=== PATIENT | female | born 1945 | race Caucasian/White ===

== ENCOUNTER → 2016-10-08 | Outpatient (CLI) | payer MEDICARE, OTHER | LOC: US 13:24 | DX: M79.602 Pain in left arm (principal); M79.622 Pain in left upper arm; I82.712 Chronic embolism and thrombosis of superficial veins of left upper extremity | CPT/HCPCS: 73060; 93971 ==

== ENCOUNTER → 2016-12-28 | Outpatient (CLI) | payer MEDICARE, OTHER | LOC: CT 14:49 | DX: R10.11 Right upper quadrant pain (principal) | CPT/HCPCS: J7050; Q9962 ==

== ENCOUNTER → 2017-03-16 | Outpatient (CLI) | payer MEDICARE, OTHER | LOC: RAD 07:47 | DX: R13.14 Dysphagia, pharyngoesophageal phase (principal); K22.4 Dyskinesia of esophagus | CPT/HCPCS: 74220 ==

== ENCOUNTER → 2020-10-17 | Outpatient (CLI) | payer MEDICARE, OTHER ==
[~2020-10-17] MED LIST: ALDACTONE 25MG25 MG PO; ALPRAZOLAM1 MG PO; ASPIRIN81 MG PO; BLACK COHASH PO; COZAAR 50MG TAB50 MG PO; DILTIAZEM 24HR120 M1 PO; ELIQUIS 5 MG TAB5 MG PO; FLUOXETINE HCL40 MG PO; LEVOFLOXACIN500 MG PO; LOPRESSOR 50 MG50 MG PO; OMNICEF 300 MG300 MG PO; VITAMIN C D PO; Voltaren Gel 1 % TOP; ZINC PO
== END ==
LOC: MAMO 12:23
DX: Z12.31 Encounter for screening mammogram for malignant neoplasm of breast (principal)
CPT/HCPCS: 77063; 77067

== ENCOUNTER 2021-01-07 13:58 | Observation (INO) | payer MEDICARE, OTHER ==
[~2021-01-07] VITALS: Ht 167.6 cm; Wt 103.4 kg
[~2021-01-07 13:58] MED LIST changes: -ALDACTONE 25MG25 MG PO; -ALPRAZOLAM1 MG PO; -ASPIRIN81 MG PO; -BLACK COHASH PO; -COZAAR 50MG TAB50 MG PO; -DILTIAZEM 24HR120 M1 PO; -ELIQUIS 5 MG TAB5 MG PO; -FLUOXETINE HCL40 MG PO; -LEVOFLOXACIN500 MG PO; -LOPRESSOR 50 MG50 MG PO; -OMNICEF 300 MG300 MG PO; -VITAMIN C D PO; -ZINC PO
[2021-01-07 15:05] LABS: HEMOGLOBIN 14.5 gm/dl (12.3-15.3); RED BLOOD COUNT 4.53 M/UL (4.00-5.10); WHITE BLOOD COUNT 6.3 K/UL (4.5-11.0)
[2021-01-07 16:04] LABS: BUN/CREATININE RATIO 17 (0-10)
[2021-01-07] MEDS ORDERED: LOPRESSOR 50 MG50 MG PO (19:32)
[2021-01-07] MEDS ORDERED: ALDACTONE 25MG25 MG PO (19:32)
[2021-01-07] MEDS ORDERED: COZAAR 50MG TAB50 MG PO (19:33)
[2021-01-07] MEDS ORDERED: ALPRAZOLAM1 MG PO (19:33)
[2021-01-07] MEDS ORDERED: ASPIRIN81 MG PO (19:34)
[2021-01-07] MEDS ORDERED: FLUOXETINE HCL40 MG PO (19:34)
[2021-01-07] MEDS ORDERED: ZINC PO (19:35)
[2021-01-07] MEDS ORDERED: VITAMIN C D PO (19:35)
[2021-01-07] MEDS ORDERED: BLACK COHASH PO (19:35)
[2021-01-08 02:41] LABS: HEMOGLOBIN 13.7 gm/dl (12.3-15.3); RED BLOOD COUNT 4.31 M/UL (4.00-5.10); WHITE BLOOD COUNT 7.5 K/UL (4.5-11.0)
[2021-01-08 02:59] LABS: BUN/CREATININE RATIO 18 (0-10)
[2021-01-09] MEDS ORDERED: LEVOFLOXACIN500 MG PO (09:49)
[2021-01-09] MEDS ORDERED: DILTIAZEM 24HR120 M1 PO (09:49)
[2021-01-09] MEDS ORDERED: ELIQUIS 5 MG TAB5 MG PO (09:49)
[2021-01-09] MEDS ORDERED: COZAAR 50MG TAB50 MG PO (09:49)
[2021-01-09] MEDS ORDERED: OMNICEF 300 MG300 MG PO (16:09)
[2021-03-13] MEDS ORDERED: CRANBERRY 12,61 EACH PO (07:47)
[2021-03-13] MEDS ORDERED: GARLIC1000 MG PO (07:50)
[2021-03-13] MEDS ORDERED: GLUCOSAMINE S1000 M2 PO (07:52)
[2021-03-13] MEDS ORDERED: SOTALOL80 MG PO ×2 (09:50→10:26)
== END 2021-01-09 17:45 | disposition home or self-care (01) ==
LOC: ER1 13:58 → PROG CARE 16:40 → CDU 16:40 → PROG CARE 19:22
PROVIDERS: Physician Assistant Medical; Preventive Medicine Occupational Medicine; ADMIT Internal Medicine
DX: I48.91 Unspecified atrial fibrillation (principal); I10 Essential (primary) hypertension; Z20.822 Contact with and (suspected) exposure to COVID-19; Z86.16 Personal history of COVID-19; Z86.718 Personal history of other venous thrombosis and embolism; Z79.82 Long term (current) use of aspirin; Z79.899 Other long term (current) drug therapy
CPT/HCPCS: ECHO; 36415; 71045; 80048; 80053; 81001; 82550; 82553; 83690; 83735; 83874; 83880; 84439; 84443; 84484; 85025; 85027; 85652; 86140; 87077; 87086; 87186; 93005; 93270; 93306; 93971; 94760; 96372; 96374; 99285; G0378; J1650; J7030; U0002

== ENCOUNTER → 2021-03-13 | Outpatient (CLI) | payer MEDICARE, OTHER ==
[~2021-03-13] MED LIST changes: +ALDACTONE 25MG25 MG PO; +ALPRAZOLAM1 MG PO; +ASPIRIN81 MG PO; +BLACK COHASH PO; +COZAAR 50MG TAB50 MG PO; +CRANBERRY 12,61 EACH PO; +DILTIAZEM 24HR120 M1 PO; +ELIQUIS 5 MG TAB5 MG PO; +FLUOXETINE HCL40 MG PO; +GARLIC1000 MG PO; +GLUCOSAMINE S1000 M2 PO; +LEVOFLOXACIN500 MG PO; +LOPRESSOR 50 MG50 MG PO; +OMNICEF 300 MG300 MG PO; +SOTALOL80 MG PO; +VITAMIN C D PO; +ZINC PO
[2021-03-13 08:01] LABS: HEMOGLOBIN 14.6 gm/dl (12.3-15.3); RED BLOOD COUNT 4.74 M/UL (4.00-5.10); WHITE BLOOD COUNT 8.3 K/UL (4.5-11.0)
== END ==
LOC: CATH 06:56
PROVIDERS: Internal Medicine Cardiovascular Disease
DX: I48.19 Other persistent atrial fibrillation (principal); I10 Essential (primary) hypertension; F41.9 Anxiety disorder, unspecified; F32.9 Major depressive disorder, single episode, unspecified; M17.11 Unilateral primary osteoarthritis, right knee; E78.5 Hyperlipidemia, unspecified; Z87.891 Personal history of nicotine dependence; Z79.01 Long term (current) use of anticoagulants; Z79.82 Long term (current) use of aspirin; Z79.899 Other long term (current) drug therapy
CPT/HCPCS: 36415; 80048; 85027; 92960; 93005; J1200; J1742; J2250; J3010; J7040

== ENCOUNTER → 2021-05-14 | Outpatient (CLI) | payer MEDICARE, OTHER | LOC: EXRD 09:23 | DX: K26.0 Acute duodenal ulcer with hemorrhage (principal); R10.11 Right upper quadrant pain; K76.0 Fatty (change of) liver, not elsewhere classified; Z90.49 Acquired absence of other specified parts of digestive tract | CPT/HCPCS: 76700 ==

== ENCOUNTER 2021-05-25 13:12 | Emergency (ER) | payer MEDICARE, OTHER | END 2021-05-25 17:08 | disposition home or self-care (01) | LOC: ER1 13:12 | DX: I83.812 Varicose veins of left lower extremity with pain (principal); I10 Essential (primary) hypertension; I48.91 Unspecified atrial fibrillation; Z87.442 Personal history of urinary calculi; Z79.82 Long term (current) use of aspirin; Z79.01 Long term (current) use of anticoagulants | CPT/HCPCS: 73590; 93971; 99284 ==

== ENCOUNTER → 2021-06-30 | Outpatient (CLI) | payer MEDICARE, OTHER | LOC: US 13:05 | DX: N63.10 Unspecified lump in the right breast, unspecified quadrant (principal) | CPT/HCPCS: 76641-RT ==

== ENCOUNTER → 2021-08-13 | Outpatient (CLI) | payer MEDICARE, OTHER | LOC: CT 09:23 | DX: R10.11 Right upper quadrant pain (principal); I10 Essential (primary) hypertension; K76.0 Fatty (change of) liver, not elsewhere classified; N28.1 Cyst of kidney, acquired | CPT/HCPCS: 36415; 74160; 82565; 84520; Q9967 ==

== ENCOUNTER → 2021-11-16 | Outpatient (CLI) | payer MEDICARE, OTHER ==
[~2021-11-16] MED LIST changes: +LOSARTAN POTASS50 MG PO; +TUMERIC
[2021-11-16 11:40] LABS: BUN/CREATININE RATIO 17 (0-10)
== END ==
LOC: OPSV2 10:00
PROVIDERS: Orthopaedic Surgery
DX: Z01.818 Encounter for other preprocedural examination (principal); M85.641 Other cyst of bone, right hand; I25.2 Old myocardial infarction; R94.31 Abnormal electrocardiogram [ECG] [EKG]
CPT/HCPCS: 36415; 80048; 93005

== ENCOUNTER → 2021-11-19 | Outpatient (CLI) | payer MEDICARE, OTHER | LOC: KOH-I 13:06 | DX: M25.561 Pain in right knee (principal); M54.50 Low back pain, unspecified; M25.761 Osteophyte, right knee; R93.6 Abnormal findings on diagnostic imaging of limbs; M47.817 Spondylosis without myelopathy or radiculopathy, lumbosacral region | CPT/HCPCS: 72100; 73562 ==

== ENCOUNTER 2021-12-10 12:09 | Emergency (ER) | payer MEDICARE, OTHER ==
[~2021-12-10 12:09] MED LIST changes: +HYDROCODON-ACE1 EAC4 PO; +TURMERIC PO; +VITAMIN C500 M4 PO; +VITAMIN D-40010 MCG PO
[2021-12-10] MEDS ORDERED: IBUPROFEN600 MG PO (14:00)
== END 2021-12-10 14:30 | disposition home or self-care (01) ==
LOC: ER1 12:09
DX: S62.234A Other nondisplaced fracture of base of first metacarpal bone, right hand, initial encounter for closed fracture (principal); I48.91 Unspecified atrial fibrillation; I10 Essential (primary) hypertension; Z79.01 Long term (current) use of anticoagulants; W01.0XXA Fall on same level from slipping, tripping and stumbling without subsequent striking against object, initial encounter
CPT/HCPCS: 71045; 73030; 73090; 73100; 73130; 99283

== ENCOUNTER → 2022-02-18 | Outpatient (CLI) | payer MEDICARE, OTHER ==
[~2022-02-18] MED LIST changes: +IBUPROFEN600 MG PO
== END ==
LOC: KOH-I 14:24
DX: M25.551 Pain in right hip (principal); M79.622 Pain in left upper arm; M47.816 Spondylosis without myelopathy or radiculopathy, lumbar region
CPT/HCPCS: 72100; 73060; 73502; 73562